=== PATIENT | female | born 1940 | race Caucasian/White ===

== ENCOUNTER → 2020-04-26 | Outpatient (CLI) | payer MEDICARE, OTHER ==
[~2020-04-26] MED LIST: ALDACTONE25 MG PO; AMARYL 2MG TABLE2 MG PO; ASPIR 8181 MG PO; B COMPLEX WITH1 EACH PO; CATAPRES 0.1MG0.1 MG PO; COZAAR100 MG PO; CRESTOR10 MG PO; EXFORGE 10-3201 EACH PO; HYDRALAZINE HC100 MG PO; ISOSORBIDE MONO30 MG PO; LASIX20 MG PO; LEVEMIR 10100 UNITS/ SQ; MACRODANTIN100 MG PO; NAMENDA5 MG PO; NORVASC10 MG PO; OMNICEF 300 MG300 MG PO; PLAVIX 75 MG TA75 MG PO; PRISTIQ ER50 MG PO; PROTONIX40 MG PO; SYNTHROID100 MCG PO; TRADJENTA5 MG PO; ZOFRAN 4 MG TAB4 MG PO
== END ==
LOC: EXRD 13:29
DX: M81.0 Age-related osteoporosis without current pathological fracture (principal); I65.23 Occlusion and stenosis of bilateral carotid arteries; M85.88 Other specified disorders of bone density and structure, other site
CPT/HCPCS: 77080; 93880

== ENCOUNTER → 2020-06-20 | Outpatient (CLI) | payer MEDICARE, OTHER | LOC: ECHO 13:09 | DX: R01.1 Cardiac murmur, unspecified (principal); I51.7 Cardiomegaly; I34.8 Other nonrheumatic mitral valve disorders; I36.1 Nonrheumatic tricuspid (valve) insufficiency | CPT/HCPCS: ECHO; 93306 ==

== ENCOUNTER → 2020-12-06 | Day surgery (SDC) | payer MEDICARE, OTHER ==
[~2020-12-06] MED LIST changes: +ALDACTONE 25MG25 MG PO; -ASPIR 8181 MG PO; +ASPIRIN CHEWABL81 MG PO; +JARDIANCE25 MG PO
== END | disposition home or self-care (01) ==
LOC: OR 06:56
DX: K29.51 Unspecified chronic gastritis with bleeding (principal); D12.2 Benign neoplasm of ascending colon; D12.3 Benign neoplasm of transverse colon; K31.A0 Gastric intestinal metaplasia, unspecified; K21.00 Gastro-esophageal reflux disease with esophagitis, without bleeding; B96.81 Helicobacter pylori [H. pylori] as the cause of diseases classified elsewhere; K44.9 Diaphragmatic hernia without obstruction or gangrene; R13.14 Dysphagia, pharyngoesophageal phase; R19.5 Other fecal abnormalities; K59.09 Other constipation; E66.9 Obesity, unspecified; Z68.30 Body mass index [BMI] 30.0-30.9, adult; E11.9 Type 2 diabetes mellitus without complications; I10 Essential (primary) hypertension; E78.00 Pure hypercholesterolemia, unspecified; I65.29 Occlusion and stenosis of unspecified carotid artery; Z79.82 Long term (current) use of aspirin; Z79.4 Long term (current) use of insulin; Z79.899 Other long term (current) drug therapy; Z88.5 Allergy status to narcotic agent; Z90.49 Acquired absence of other specified parts of digestive tract
CPT/HCPCS: 82962; J2704; J7040

== ENCOUNTER → 2021-05-11 | Outpatient (CLI) | payer MEDICARE, OTHER | LOC: KOH-I 08:53 | DX: R41.81 Age-related cognitive decline (principal); R13.13 Dysphagia, pharyngeal phase; Z88.5 Allergy status to narcotic agent; G31.9 Degenerative disease of nervous system, unspecified; I67.82 Cerebral ischemia | CPT/HCPCS: 70450 ==

== ENCOUNTER 2021-09-02 22:06 | Emergency (ER) | payer MEDICARE, OTHER ==
[2021-09-02 22:55] LABS: HEMOGLOBIN 10.6 gm/dl (12.3-15.3); RED BLOOD COUNT 3.77 M/UL (4.00-5.10); WHITE BLOOD COUNT 7.6 K/UL (4.5-11.0)
== END 2021-09-03 01:32 | disposition short-term general hospital (02) ==
LOC: ER1 22:06
PROVIDERS: Student in an Organized Health Care Education/Training Program
DX: S02.2XXA Fracture of nasal bones, initial encounter for closed fracture (principal); S02.40DA Maxillary fracture, left side, initial encounter for closed fracture; S02.40CA Maxillary fracture, right side, initial encounter for closed fracture; S80.11XA Contusion of right lower leg, initial encounter; S60.222A Contusion of left hand, initial encounter; I11.9 Hypertensive heart disease without heart failure; I48.91 Unspecified atrial fibrillation; E11.9 Type 2 diabetes mellitus without complications; Z23 Encounter for immunization; Z79.01 Long term (current) use of anticoagulants; Z88.5 Allergy status to narcotic agent; W19.XXXA Unspecified fall, initial encounter; Y92.009 Unspecified place in unspecified non-institutional (private) residence as the place of occurrence of the external cause
CPT/HCPCS: 70450; 70486; 72125; 73130; 73564; 80053; 85025; 85610; 85730; 90471; 90715; 93005; 99285